=== PATIENT | male | born 1935 | race Caucasian/White ===

== ENCOUNTER 2016-05-19 12:02 | Outpatient (CLI) ==
--- NOTE | 2016-05-19 12:19 | DI ---
EXAM: PA and lateral views of the chest HISTORY: Bronchitis COMPARISON: None FINDINGS: The cardiomediastinal silhouette is normal. There is no pneumothorax or pleural effusion . There is no consolidation, nodule or mass. The osseous structures demonstrate degenerative disea se of the spine. There are surgical clips in right upper quadrant. IMPRESSION: No acute cardiopulmonary process
== END 2016-05-19 12:03 | disposition home or self-care (01) ==
LOC: RAD 12:02
PROVIDERS: ATTEND Internal Medicine
DX: J40 Bronchitis, not specified as acute or chronic (principal)

== ENCOUNTER 2017-08-29 08:01 | Outpatient (CLI) | payer OTHER ==
--- NOTE | 2017-08-29 10:19 | MRI ---
EXAM: MRI upper arm/right humerus without contrast. HISTORY: Right biceps deformity. Pain. Injured lifting. Skipwith pop. Upper humerus area. Bulge mid humerus.. TECHNIQUE: Using a coil on a high field strength magnet multiplanar multisequence large field of vie w imaging obtained through level of the right humerus without intravenous gadolinium contrast. Note this constitutes incomplete MR evaluation of the right shoulder as well as right elbow.. COMPARISON: MRI right shoulder 12/31/2009. FINDINGS: The right humeral head seated. Poorly characterized suspicion for full-thickness tear sup raspinatus. Free fluid subacromial/subdeltoid space. Right glenohumeral joint osteoarthrosis. Overa ll bone marrow signal intensity the visualized right humerus shows no acute fracture, stress fracture or discrete lytic or blastic lesion. The proximal extra-articular bicipital groove empty. Tendinosis with full-thickness tear/disruption proximal long head biceps tendon. Torn and retracted distal tendon end fibers approximate 10 cm prox imal to the entrance of the bicipital groove. Surrounding fluid signal intensity/edema dissects dista lly. Muscle strain with distal muscle belly retraction as well. Note the distal insertion of the bi ceps brachii tendon below the right elbow joint line not imaged/evaluated on the current exam. Proxim al short head biceps brachii intact otherwise.. Course of the medial neurovascular bundle within nor mal limit in appearance. No enlarged right axillary lymphadenopathy.. IMPRESSION: Tendinosis with full-thickness tear/disruption proximal long head biceps tendon as descr ibed. Surrounding fluid signal intensity/edema dissecting. Associated muscle strain. Poorly characterized suspicion for full-thickness tear supraspinatus portion of the rotator cuff. Fr ee fluid subacromial/subdeltoid space. Right glenohumeral joint osteoarthrosis.
== END 2017-08-29 08:02 | disposition home or self-care (01) ==
LOC: RAD 08:01
PROVIDERS: ATTEND Internal Medicine
DX: M21.921 Unspecified acquired deformity of right upper arm (principal); M79.621 Pain in right upper arm
CPT/HCPCS: 73218

== ENCOUNTER 2018-02-01 12:04 | Outpatient (CLI) | payer OTHER ==
--- NOTE | 2018-02-01 12:41 | DI ---
EXAM: Radiographs, right rib HISTORY: Initial presentation for right-sided chest trauma. COMPARISON: Chest radiograph 05/19/2016. TECHNIQUE: Four views. FINDINGS: No right rib fracture identified. Right lung is clear without pleural effusion or pneumot horax. Cholecystectomy clips are present. IMPRESSION: No right rib fracture.
--- NOTE | 2018-02-01 12:42 | DI ---
EXAM: Radiographs, thoracic spine HISTORY: Initial presentation for back pain following a fall. COMPARISON: Chest radiograph 05/19/2016. TECHNIQUE: Three views. FINDINGS: Curvature and alignment are normal. Vertebral body heights are maintained. Mild multilev el degenerative disc disease noted. Visualized lungs are clear. IMPRESSION: No acute abnormality of the thoracic spine.
--- NOTE | 2018-02-01 12:42 | DI ---
EXAM: Chest two view, frontal and lateral views. HISTORY: Initial presentation for chest pain following a fall. COMPARISON: 05/19/2016. FINDINGS: The heart size is normal. There is no pulmonary vascular congestion. The lungs are clear . No pleural effusion or pneumothorax is seen. No acute osseous abnormality identified. Cholecyste ctomy clips noted. Since the prior study, there has been no significant interval change. IMPRESSION: No acute cardiopulmonary process.
== END 2018-02-01 12:05 | disposition home or self-care (01) ==
LOC: RAD 12:04
PROVIDERS: ATTEND Internal Medicine
DX: R07.9 Chest pain, unspecified (principal); M54.9 Dorsalgia, unspecified; R07.81 Pleurodynia; W19.XXXA Unspecified fall, initial encounter

== ENCOUNTER 2018-04-27 08:50 | Outpatient (CLI) ==
--- NOTE | 2018-04-27 10:25 | US ---
EXAM: ULTRASOUND CAROTID DUPLEX, BILATERAL HISTORY: Dizziness FINDINGS: Ruelas-scale ultrasound, color Doppler and spectral analysis was performed. Velocities are in meters per second. By ruelas scale and color Doppler imaging, there were regions of heterogeneous plaque formation identi fied within the carotid bulbs and internal carotid arteries. These regions of plaque appeared to rem ain easily less than 50% vessel diameter. RIGHT: External carotid artery peak systolic velocity: 0.61 Common carotid artery peak systolic velocity/end diastolic velocity: 1.54/0.14 Internal carotid artery peak systolic velocity: 0.63 ICA/CCA peak systolic velocity ratio: 1.2 ICA end diastolic velocity: 2.4 LEFT: External carotid artery peak systolic velocity: 0.59 Common carotid artery peak systolic velocity/end diastolic velocity: 0.52/0.14 Internal carotid artery peak systolic velocity: 0.47 ICA/CCA peak systolic velocity ratio: 0.09 ICA end diastolic velocity: 1.1 The right vertebral artery was seen and was antegrade. The left vertebral artery was not seen. IMPRESSION: 1. By ruelas scale and color Doppler imaging, there were regions of heterogeneous plaque formation miller ntified within the carotid bulbs and internal carotid arteries. These regions of plaque appeared to remain easily less than 50% vessel diameter. 2. Internal carotid artery peak systolic velocities and ICA/CCA peak systolic velocity ratios indica te no hemodynamically significant stenosis bilaterally. 3. No left vertebral artery was seen. This may be secondary to technical difficulty, small caliber or occlusion. Right vertebral artery was normally antegrade. 4. Correlation with CTA neck can be considered if indicated.
--- NOTE | 2018-04-27 11:59 | MRI ---
EXAM: MRI brain without and with IV contrast. DATE: 04/27/2018. HISTORY: Dizziness. TECHNIQUE: Sagittal T1W pre and postcontrast, axial T2W, axial FLAIR, axial T1W pre and postcontrast , axial DWI, coronal T1W postcontrast, and coronal T2W GRE sequences of the brain were obtained using 1.2 Radha magnet. CONTRAST: Omniscan - 15 ml IV. COMPARISON: CT paranasal sinuses 11 October 2007. FINDINGS: The ventricles, cisterns, many cerebral sulc and a few cerebellar sulci are enlarged due t o involutional change. No midline shift, mass effect or abnormal extra-axial fluid collection is gabrielle arent. No acute infarct, hemorrhage or enhancing neoplasm is identified. No abnormal contrast enhan cement is identified in the brain, meninges or dura. Small areas of T2W/FLAIR hyperintensity are obs erved in the white matter abutting each lateral ventricles. Small number of 2-7 mm diameter, T2W/FLA IR bright, non-enhancing foci are scattered within the subcortical white matter bilaterally. The gra y - white matter differentiation is normal. No migration or diverticulation abnormality is identifie d. The amygdala, hippocampus, and parahippocampal gyri are similar bilaterally. The 7th/8th cranial nerve complexes, cerebellopontine angles, brainstem, and visible cervical spinal cord are normal. T here is no cerebellar tonsillar ectopia. The pituitary gland is somewhat small in size. Corpus call osum is normal in size and configuration. Flow voids are present in the major intracranial arteries and in the dural venous sinuses. No aneurysm, AVM or dural venous sinus thrombosis is apparent. Gabrielle earance of the lens of each eye suggests prior cataract surgery. No other orbit abnormality is ident ified. The mastoid air cells are unremarkable. There is minor mucosal thickening within multiple et hmoid air cells. No neck mass or lymphadenopathy is detected. No calvarial neoplasm or acute fractu re is evident. Cervical spinal canal appears mildly narrow at C2-3. IMPRESSIONS: 1. No acute infarct, hemorrhage, enhancing neoplasm or hydrocephalus. 2. Minor/mild cerebral leukomalacia - likely due to small vessel disease. 3. Mild cerebral and minor cerebellar atrophy. 4. Somewhat small pituitary gland. 5. C2-3 mild central canal stenosis. 6. Minor ethmoid sinus disease.
== END 2018-04-27 08:51 | disposition home or self-care (01) ==
LOC: RAD 08:50
PROVIDERS: ATTEND Internal Medicine
DX: R42 Dizziness and giddiness (principal)
CPT/HCPCS: 36415; 82565

== ENCOUNTER 2018-05-02 08:37 | Outpatient (CLI) | payer OTHER ==
--- NOTE | 2018-05-02 10:37 | DI ---
EXAM: CHEST FRONTAL AND LATERAL VIEWS HISTORY: Ataxia. COMPARISON: 02/01/2018 FINDINGS: Heart size and mediastinal contour remain within normal limits. No acute infiltrates. Normal vascularity with no pleural fluid or pneumothorax. The bony thorax has no acute finding. IMPRESSION: No acute process.
--- NOTE | 2018-05-02 12:00 | CT ---
EXAM: CTA neck HISTORY: Left vertebral artery not identified on ultrasound. Dizziness. TECHNIQUE: CTA neck with and without intravenous contrast. Multiplanar images provided. 3-D recons tructions. 125 ml Omnipaque. FINDINGS: No comparison CT. The origin of the great vessels have normal caliber. The common carotid arteries have normal caliber and patency. There is no hemodynamically significant stenosis at the carotid bulbs or within the in ternal/external carotid arteries at the cervical level. Both vertebral arteries are patent with the left artery significantly diminutive in caliber. The right vertebral artery is prominent in caliber. There is no evidence of hemodynamically significant stenosis at the origins of the vertebral arteri es although the left artery origin is poorly seen. Soft tissues of the neck proper are within normal limits including salivary glands and thyroid. Orop haryngeal structures are symmetric. Degenerative changes of the spine lead to multilevel central can al and neural foraminal stenosis. Patchy opacification within the paranasal sinuses. Mastoid proces ses are clear. Upper lung temple are free of infiltrate. IMPRESSION: 1. The left vertebral artery is patent although diminutive in caliber. The other arteries have norm al appearance. No evidence of hemodynamically significant carotid artery stenosis. 2. Degenerative changes of the cervical spine with multilevel central and neural foraminal stenosis. 3. Mild chronic paranasal sinusitis.
== END 2018-05-02 08:38 | disposition home or self-care (01) ==
LOC: RAD 08:37
PROVIDERS: ATTEND Internal Medicine
DX: R27.0 Ataxia, unspecified (principal)

== ENCOUNTER 2023-01-23 10:44 | Observation (INO) ==
[2023-01-23] MEDS ORDERED: TORADOL IVP STA (11:05)
[2023-01-23] MEDS ORDERED: TYLENOL PO STA (11:05)
[2023-01-23 11:20] LABS: BASOPHILS # (AUTO) 0.1 K/uL (0-0.2); BASOPHILS % (AUTO) 0.4 % (0.0-3.0); EOSINOPHILS # (AUTO) 0.3 K/ul (0.0-0.7); EOSINOPHILS % (AUTO) 2.2 % (0.0-7.0); HEMATOCRIT 35.3 % (42.0-52.0); HEMOGLOBIN 11.6 g/dl (14.0-18.0); IMMATURE GRANULOCYTE # (AUTO) 0.1 (0.0-1.0); IMMATURE GRANULOCYTE % (AUTO) 0.9 % (0.0-5.0); LYMPHOCYTES % (AUTO) 50.5 (10.0-50.0); MEAN CORPUSCULAR HEMOGLOBIN 28.3 pg (27.0-31.0); MEAN CORPUSCULAR HGB CONC 32.9 (31.8-35.4); MEAN CORPUSCULAR VOLUME 86.1 fl (80.0-94.0); MONOCYTES # (AUTO) 0.9 K/uL (0.4-2.0); MONOCYTES % (AUTO) 6.4 (0-10); NEUTROPHILS # (AUTO) 5.5 K/ul (2.0-6.9); NEUTROPHILS % (AUTO) 39.6 % (42.2-75.2); PLATELET COUNT 343 10^3/uL (140-440); RDW COEFFICIENT OF VARIATION 12.7 % (11.6-14.8); WHITE BLOOD COUNT 13.95 K/ul (4.2-10.2)
[2023-01-23 11:33] LABS: ALANINE AMINOTRANSFERASE 29.3 U/L (0-50); ALBUMIN 3.71 g/dL (3.5-5.0); ALKALINE PHOSPHATASE 62.4 U/L (56-119); ASPARTATE AMINO TRANSFERASE 31.2 U/L (17-59); BILIRUBIN,TOTAL 0.39 mg/dL (0.2-1.3); BLOOD UREA NITROGEN 12.6 mg/dL (9-20); CALCIUM 8.58 mg/dL (8.4-10.2); CARBON DIOXIDE 30.4 mmol/L (22-30.0); CREATININE 0.76 mg/dL (0.60-1.10); GLUCOSE 127.4 mg/dL (74-106); MAGNESIUM 1.97 mg/dL (1.6-2.3); POTASSIUM 4.13 mmol/L (3.5-5.1); SODIUM 127.6 mmol/L (134.5-145); TOTAL PROTEIN 6.46 g/dL (6.3-8.2)
[2023-01-23 11:37] LABS: SARS COV-2 RNA RAPID NAAT NEGATIVE (NEGATIVE)
[2023-01-23 11:38] LABS: MOLECULAR FLU A NEGATIVE BY NAAT (NEGATIVE); MOLECULAR FLU B NEGATIVE BY NAAT (NEGATIVE)
--- NOTE | 2023-01-23 11:40 | DI ---
EXAM: TWO VIEWS OF THE RIGHT HIP HISTORY: Right hip pain. COMPARISON: None FINDINGS: There is mild degenerative change and osteophyte formation of the right hip. Small osteoph ytes are present. Limited views of the pelvis are normal. The soft tissues are normal. IMPRESSION: Degenerative disease of the right hip with no displaced fracture identified.
[2023-01-23 11:43] LABS: ANISOCYTOSIS NOT PRESENT (NOT PRESENT); POLYCHROMASIA 1+ (NOT PRESENT)
[2023-01-23 11:45] LABS: TROPONIN I < 0.012 ng/ml (0.0000-0.120)
[2023-01-23 12:28] LABS: BILIRUBIN,URINE Negative (NEGATIVE); CLARITY,URINE Clear (CLEAR); COLOR,URINE Yellow (YELLOW); GLUCOSE, URINE (UA) Negative (NEGATIVE); KETONES,URINE Negative (NEGATIVE); LEUKOCYTE ESTERASE ,URINE Negative (NEGATIVE); NITRITE,URINE Negative (NEGATIVE); PH,URINE 7.5 (5-9); PROTEIN,URINE Negative (NEGATIVE); URINE, BLOOD Trace-intact (NEGATIVE); UROBILINOGEN,URINE 0.2 (0.2)
[2023-01-23 12:46] LABS: AMORPHOUS SEDIMENT,UR 2+ (NOT PRESENT); URINE RBC, MICROSCOPIC 0-2 (0-2)
--- NOTE | 2023-01-23 14:41 | ED.PDOC ---
General ED Provider: Dr. CHIDI AMOS Chief Complaint: Weakness Stated Complaint: See above Time Seen by Provider: 01/23/23 10:45 Information Source: Patient Primary Care Provider: KATHYA LAUGHLIN MD Nursing and Triage Documentation Reviewed and Agree: Yes (unless otherwise noted in my documentation.) Review of Systems Review Of Systems Constitutional: Reports Other (documented below) All Other Systems: Other (documented below) [facility] Medical History Ataxia Barretts esophagus BPH (benign prostatic hyperplasia) Chronic anemia CLL (chronic lymphocytic leukemia) Constipation Dysuria Erectile dysfunction GERD (gastroesophageal reflux disease) HTN (hypertension) Leukocytosis Lumbar radiculopathy Polio Social History (Updated 09/29/22 @ 13:52 by SAULO VELASQUEZ) Smoking and tobacco status: Never smoker Alcohol intake: never Substance use type: does not use Special lenore needs: No Agree to transfusion: Yes Adopted: No Caregiver/support person: No Foster care: No Household members: spouse Housing: house Marital status: M Lives independently: Yes Number of children: 1 service: No FDC: No Current occupational status: retired History of recent travel: No Do you think of yourself as: straight/heterosexual Current gender identity: male Seatbelt use: always Drives intoxicated or rides with intoxicated experienced truck driver: No Water heater temperature set < 120 degrees: Yes Working smoke detector in home: Yes Fire extinguisher in home: Yes Carbon monoxide detector in home: Yes Surgical History (Updated 06/22/22 @ 13:43 by FLAVIA MCCLENDON, RN) S/P laminectomy Z98.890 - Other specified postprocedural states (ICD-10) Physical Exam Physical Exam Appearance: Reports Other (documented below if examined) Ill-appearing: Not Applicable (documented below if examined) Pain Distress: Not Applicable (documented below if examined) Eyes: Reports Other (documented below if examined) ENT: Reports Other (documented below if examined) Neck: Not Examined (documented below if examined) Respiratory: Reports Other (documented below if examined) Cardiovascular: Reports Other (documented below if examined) GI/: Reports Other (documented below if examined) Musculoskeletal: Reports Other (documented below if examined) Skin: Reports Other (documented below if examined) Neurological: Reports Other (documented below if examined) Psychiatric: Reports Other (documented below if examined) Critical Care Note Critical Care Note Total Critical Care Time (mins): 0 Course Course 01/23/23 11:14 01/23/23 11:14 Orders, Labs, Meds: Lab Review 01/23/23 01/23/23 01/23/23 11:14 11:15 12:00 WBC 13.95 H RBC 4.10 L Hgb 11.6 L Hct 35.3 L MCV 86.1 MCH 28.3 MCHC 32.9 RDW Coeff of [place] 12.7 Plt Count 343 Immature Gran % (Auto) 0.9 Neut % (Auto) 39.6 L Lymph % (Auto) 50.5 H [place] % (Auto) 6.4 Eos % (Auto) 2.2 Baso % (Auto) 0.4 Neut # (Auto) 5.5 Lymph # (Auto) 7.0 H [place] # (Auto) 0.9 Eos # (Auto) 0.3 Baso # (Auto) 0.1 Immature Gran # (Auto) 0.1 Polychromasia 1+ Anisocytosis Not present Sodium 127.6 L Potassium 4.13 Chloride 93.0 L Carbon Dioxide 30.4 H Anion Gap 8.33 BUN 12.6 Creatinine 0.76 Estimated GFR (MDRD) 97.00 BUN/Creatinine Ratio 16.57 Glucose 127.4 H Calcium 8.58 Magnesium 1.97 Total Bilirubin 0.39 AST 31.2 ALT 29.3 Alkaline Phosphatase 62.4 Troponin I < 0.012 Total Protein 6.46 Albumin 3.71 Globulin 2.75 Albumin/Globulin Ratio 1.34 Urine Color Yellow Urine Clarity Clear Urine pH 7.5 Ur Specific [place] 1.020 Urine Protein Negative Urine Glucose (UA) Negative Urine Ketones Negative Urine Blood Trace-intact H Urine Nitrite Negative Urine Bilirubin Negative Urine Urobilinogen 0.2 Ur Leukocyte Esterase Negative Urine Microscopic RBC 0-2 Urine Microscopic WBC 5-10 Ur Squamous Epith Cells Not Reportable Amorphous Sediment 2+ Influ A Molecular Assay Negative by naat Influ B Molecular Assay Negative by naat SARS CoV-2 RNA Rapid ANN Negative Orders Category Date Time Status CBC W/ AUTO DIFF Stat LAB 01/23/23 11:14 Completed COMPREHENSIVE METABOLIC PANEL Stat LAB 01/23/23 11:14 Completed COVID [SARS COV-2 RNA RAPID ANN] Stat LAB 01/23/23 11:15 Completed FLU A & B MOLECULAR [FLU A/B MOLECULAR] Stat LAB 01/23/23 11:15 Completed MAGNESIUM Stat LAB 01/23/23 11:14 Completed RBC MORPHOLOGY Stat LAB 01/23/23 11:14 Completed TROPONIN I Stat LAB 01/23/23 11:14 Completed URINALYSIS C & S IF INDICATED Stat LAB 01/23/23 12:00 Completed URINE CULTURE Stat LAB 01/23/23 12:00 Received Acetaminophen [Tylenol] Meds 01/23/23 11:05 Discontinued 1,000 mg PO ONCE STA Ketorolac Tromethamine [Toradol] Meds 01/23/23 11:05 Discontinued 15 mg IVP ONCE STA HIP,RIGHT 2VWS W OR W/O PELVIS Stat RADS 01/23/23 11:05 Completed Medications Discontinued Medications Generic Name Dose Route Start Last Admin Trade Name Freq PRN Reason Stop Dose Admin Acetaminophen 1,000 mg 01/23/23 11:05 01/23/23 11:48 Acetaminophen 500 Mg Tablet PO 01/23/23 11:06 1,000 mg ONCE STA Administration Ketorolac Tromethamine 15 mg 01/23/23 11:05 01/23/23 11:48 Ketorolac Tromethamine 15 Mg/Ml Vial IVP 01/23/23 11:06 15 mg ONCE STA Administration Vital Signs: Temp Pulse Resp BP Pulse Ox 01/23/23 14:00 146/87 H 01/23/23 10:48 98.4 F 75 18 193/99 H 98 Discharge Plan Discharge Patient Disposition: PLACED OBSERVATION Discharge Problem: Acute pain of right hip, Debility, unspecified Prescriptions: No Action fenofibrate 160 mg tablet 160 mg PO DAILY Qty: 90 1RF nystatin 100,000 unit/gram powder 1 applic topical ONCE PRN (Reason: YEAST INFECTION) Qty: 60 2RF lorazepam 1 mg tablet 1 mg PO BID PRN (Reason: Anxiety) Qty: 60 3RF tamsulosin 0.4 mg capsule See Rx Instructions .ROUTE .COMPLEX Qty: 180 1RF Dose Instruction: TAKE 2 CAPSULES BY MOUTH DAILY Rx Instructions: TAKE 2 CAPSULES BY MOUTH DAILY duloxetine [Cymbalta] 60 mg capsule,delayed release(DR/EC) 60 mg PO DAILY Qty: 90 1RF ezetimibe [Zetia] 10 mg tablet 10 mg PO DAILY Qty: 90 1RF finasteride [Proscar] 5 mg tablet 5 mg PO DAILY Qty: 90 1RF gabapentin 300 mg capsule 300 mg PO BEDTIME Qty: 90 1RF losartan [Cozaar] 50 mg tablet 50 mg PO QDAY Qty: 90 1RF pantoprazole 40 mg tablet,delayed release (DR/EC) 40 mg PO BID Qty: 180 1RF polyethylene glycol 3350 [Miralax] 17 GM powder in packet 17 g PO DAILY biotin 10,000 MCG capsule 10,000 mcg PO BID fluticasone propionate 1 SPRAY spray,suspension 1 spray NS DAILY PRN (Reason: Nasal Congestion) Centrum Silver Men 1 EACH tablet 1 ea PO DAILY ICaps AREDS 1 EACH tablet,delayed release (DR/EC) 1 ea PO DAILY cetirizine [Zyrtec] 10 MG tablet 10 mg PO DAILY acetaminophen [Mapap Extra Strength] 500 MG tablet 1,000 mg PO BEDTIME Qty: 1 0RF hydrocodone-acetaminophen 7.5-325 mg tablet 1 tab PO BID PRN (Reason: Pain) Qty: 60 0RF lansoprazole 15 mg capsule,delayed release(DR/EC) 15 mg PO BID Qty: 180 1RF Did you review [place] RESIDENT PROGRAM SPECIALIST for ALL controlled substances?: Not Applicable ED Provider: CHIDI AMOS Physician Progress Note: Disclaimer: This note was dictated by speech recognition technology. Minor errors in cover stitch machine operator may be present. Please call and notify me immediately for clarification or corrections. 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 He has been able to transfer from bed to other locations with assistance. He is currently incapable of assisting in his own transfer. His bed mobility has decreased. He is suffering also from right hip pain with an ambiguous onset. There is no history of an injury. The problem list, allergies, current medications and pharmacy records were reviewed and updated. ROS is included above. PE: Vital signs reviewed as well as all nursing documentation. General: Awake, alert, no acute distress, not toxic appearing, appears weak Overall, the patient is atraumatic, has no deformities, has no focal deficits, has no inappropriate behavior. Respiratory: No distress Cardiac: no edema or JVD, RRR Musculoskeletal: Very mild right hip tenderness without any bony point tenderness MDM: All results and reports for tests that were done in the emergency department have been reviewed and considered in the planning and disposition process. DD: Viral syndrome, progressively worsening debility, sepsis, UTI, pneumonia, right hip fracture, arthritis, contusion, Plan: Right hip x-ray, basic work-up, IV crystalloids Interpretation of tests: The x-ray report was reviewed and it was unremarkable. The lab work was not remarkable for any change off the baseline. Further action: I discussed the results with the family who expressed very clearly that they will not be able to care for him at home provided his physical status. I discussed that with his primary care physician who agreed to admit the patient under the hospitalist service for observation until a safe disposition has been arranged. I talked with the hospitalist who agreed and accepted the admission.
[2023-01-23] MEDS ORDERED: TYLENOL PO PRN (15:09)
[2023-01-23] MEDS ORDERED: ZOFRAN 4 MG/2 ML IVP PRN (15:09)
--- NOTE | 2023-01-23 15:13 | PCM ---
Date of Service Date Seen by Provider: 01/23/23 Time Seen by Provider: 15:00 Admit Day/Time Admission Date: 01/23/23 Admission Time: 14:50 Reason for Admission Chief Complaint: DEBILITY, RIGHT HIP PAIN Hospital Provider Hospital Provider: Gaurang Trejo PA-C, [facility] Primary Care Physician Primary Care Physician: KATHYA VILLEDA MD History of Present Illness History of Present Illness: Patient is an 87 year old male from home with pmhx of polio with chronic right sided deficits, GERD, hyperlipidemia, hypertension, BPH and incontinence, CLL, chronic anemia, barretts esophagus, spinal stenosis and mobility issues who presented to the ER for RLE weakness. Patient states 2-3 weeks ago he was able to do exercises with his lower ext, including right side. He has weakness but still had some use of the RLE. However it has progressively worsened to the point his RLE is paralyzed, he is only able to wiggle his toes. His states that he used to be able to get his RLE under him enough while transferring to bear weight on that leg to help transfer from bed to wheelchair, but he hasn't been able to do anything lately. This has made it incredibly difficult for her at home, she's had to recruit family members to help transfer him. She's had to lower him to the ground a couple times because she couldn't support him. He's had a cough and some sob. Otherwise no other new findings. He has incontinence but this is chronic. RUE is weak but at his baseline. She is interested also in home health and some DME that would help with transferring at home. In ER right hip x ray unremarkable. Labs unremarkable, chronically low sodium noted. Case Discussed With Case Discussed With: Patient's case was discussed with the ER Physicians, Dr. Amos. [facility] Medical History Dysuria R30.0 - Dysuria (ICD-10) Polio A80.9 - Acute poliomyelitis, unspecified (ICD-10) Surgical History S/P laminectomy Z98.890 - Other specified postprocedural states (ICD-10) Social History Smoking and tobacco status: Never smoker Alcohol intake: never Substance use type: does not use Special lenore needs: No Agree to transfusion: Yes Adopted: No Caregiver/support person: No Foster care: No Household members: spouse Housing: house Marital status: M Lives independently: Yes Number of children: 1 service: No FDC: No Current occupational status: retired History of recent travel: No Do you think of yourself as: straight/heterosexual Current gender identity: male Seatbelt use: always Drives intoxicated or rides with intoxicated long haul truck driver: No Water heater temperature set < 120 degrees: Yes Working smoke detector in home: Yes Fire extinguisher in home: Yes Carbon monoxide detector in home: Yes Allergies Allergies Allergy/AdvReac Type Severity Reaction Status Date / Time amoxicillin Allergy Intermediate Dizziness Verified 09/29/22 13:46 Penicillins Allergy Intermediate Rash Verified 09/29/22 13:46 Sulfa (Sulfonamide Allergy Intermediate Rash Verified 09/29/22 13:46 Antibiotics) adhesive tape AdvReac Itching Verified 09/29/22 13:46 erythromycin base AdvReac Rash Verified 09/29/22 13:46 latex AdvReac Itching Verified 09/29/22 13:46 Tetracyclines AdvReac Rash Verified 09/29/22 13:46 Current Medications Home Medications biotin 10,000 mcg capsule 10,000 mcg PO BID 09/13/18 [History Confirmed 09/13/18 Last Taken Unknown] cetirizine 10 mg tablet (Zyrtec) 10 mg PO DAILY 09/13/18 [History Confirmed 09/13/18 Last Taken Unknown] fluticasone propionate 50 mcg/actuation nasal spray,suspension 1 spray NS DAILY PRN Nasal Congestion 09/13/18 [History Confirmed 09/13/18 Last Taken Unknown] rcbwkyqs-hy-zewyw 300 mcg-K 60 mcg-lycop 600 mcg-lutein 300 mcg tablet (Centrum Silver Men) 1 ea PO DAILY 09/13/18 [History Confirmed 09/13/18 Last Taken Unknown] polyethylene glycol 3350 17 gram oral powder packet (Miralax) 17 g PO DAILY 09/13/18 [History Confirmed 09/13/18 Last Taken Unknown] vit A 7,160 unit-C 113 mg-E 100 pgfd-emej-uyqyrn tablet,delayed rel. (ICaps AREDS) 1 ea PO DAILY 09/13/18 [History Confirmed 09/13/18 Last Taken Unknown] acetaminophen 500 mg tablet (Mapap Extra Strength) 1,000 mg (2 x 500 mg) PO BEDTIME #1 tab 09/28/18 [Rx Last Taken Unknown] hydrocodone 7.5 mg-acetaminophen 325 mg tablet 1 tab PO BID PRN Pain #60 tabs 06/23/22 [Rx Confirmed 06/24/22 Last Taken Unknown] lansoprazole 15 mg capsule,delayed release 15 mg PO BID #180 caps 06/23/22 [Rx Confirmed 06/24/22 Last Taken Unknown] fenofibrate 160 mg tablet 160 mg PO DAILY #90 tabs 07/01/22 [Rx Last Taken Unknown] nystatin 100,000 unit/gram topical powder 1 applic topical ONCE PRN YEAST INFECTION #60 grams 08/25/22 [Rx Last Taken Unknown] lorazepam 1 mg tablet 1 mg PO BID PRN Anxiety #60 tabs 01/05/23 [Rx Last Taken Unknown] tamsulosin 0.4 mg capsule See Rx Instructions .Route .COMPLEX #180 caps 01/05/23 [Rx Last Taken Unknown] duloxetine 60 mg capsule,delayed release (Cymbalta) 60 mg PO DAILY #90 caps 01/09/23 [Rx Last Taken Unknown] ezetimibe 10 mg tablet (Zetia) 10 mg PO DAILY #90 tabs 01/09/23 [Rx Last Taken Unknown] finasteride 5 mg tablet (Proscar) 5 mg PO DAILY #90 tabs 01/09/23 [Rx Last Taken Unknown] gabapentin 300 mg capsule 300 mg PO BEDTIME #90 caps 01/09/23 [Rx Last Taken Unknown] losartan 50 mg tablet (Cozaar) 50 mg PO QDAY #90 tabs 01/09/23 [Rx Last Taken Unknown] pantoprazole 40 mg tablet,delayed release 40 mg PO BID #180 tabs 01/09/23 [Rx Last Taken Unknown] Home Acetaminophen (Acetaminophen 325 Mg Tablet) 650 mg PO Q4H PRN PRN Reason: Mild Pain Enoxaparin Sodium (Enoxaparin Sodium 40 Mg/0.4 Ml Syr) 40 mg SUBCUT DAILY ANDREA Ondansetron HCl (Ondansetron Hcl/Pf 4 Mg/2 Ml Sdv) 4 mg IVP Q6H PRN PRN Reason: Nausea / Vomiting Discontinued Medications Acetaminophen (Acetaminophen 500 Mg Tablet) 1,000 mg PO ONCE STA Stop: 01/23/23 11:06 Last Admin: 01/23/23 11:48 Dose: 1,000 mg Ketorolac Tromethamine (Ketorolac Tromethamine 15 Mg/Ml Vial) 15 mg IVP ONCE STA Stop: 01/23/23 11:06 Last Admin: 01/23/23 11:48 Dose: 15 mg Review of Systems Constitutional: Reports Weakness; Denies Fever, Fatigue or Chills Head: Reports Normocephalic and Atraumatic Cardiovascular: Denies Chest pain, Chest Pressure or Edema Respiratory: Reports Cough and Shortness of air Gastrointestinal: Denies Nausea, Vomiting, Diarrhea, Abdominal pain or Melena Genitourinary: Reports Incontinent Bladder; Denies Dysuria, Hematuria or Frequency Dermatologic: Denies Rashes Neurological: Reports Weakness and Problems with walking; Denies Syncope Physical examination Most Recent Vital Signs: Most Recent Vital Signs Temperature 98.4 F 01/23/23 10:48 Temperature Source Oral 01/23/23 10:48 Pulse Rate 75 01/23/23 10:48 Respiratory Rate 18 01/23/23 10:48 Blood Pressure 146/87 H 01/23/23 14:00 O2 Sat by Pulse Oximetry 98 01/23/23 10:48 Height 5 ft 10 in 01/23/23 10:48 Weight 185 lb 13.595 oz 01/23/23 10:48 Appearance: Positive No Apparent Distress, Alert and Oriented x3 and Other (+chronically ill) Skin: Positive [place], Warm and Good Turgor; Negative Rashes HEENT: Positive Normocephalic and Atraumatic Neck: Positive Supple and Midline Trachea Chest/Lungs: Positive Clear to Auscultation Bilaterally; Negative Rales, Rhonci or Wheezes Heart: Positive RRR GI/: Positive Soft, Nontender, Bowel Sounds Normal and No Distention Neurological: Positive Alert, Oriented and Other (+Generalized weakness and debility. +Focal weakness of RUE but at baseline per patient. Right had contraction noted. +Focal weakness of RLE, worse than baseline. Unable to extend hip or knee, unable to lift off of cot, only able to wiggle toes. Pulses intact. ) Psychiatric: Positive Oriented x4, Appropriate Mood and Appropriate Affect Labs This Visit Labs This Visit: Labs This Visit 01/23/23 01/23/23 01/23/23 11:14 11:15 12:00 WBC 13.95 H RBC 4.10 L Hgb 11.6 L Hct 35.3 L MCV 86.1 MCH 28.3 MCHC 32.9 RDW Coeff of [place] 12.7 Plt Count 343 Immature Gran % (Auto) 0.9 Neut % (Auto) 39.6 L Lymph % (Auto) 50.5 H [place] % (Auto) 6.4 Eos % (Auto) 2.2 Baso % (Auto) 0.4 Neut # (Auto) 5.5 Lymph # (Auto) 7.0 H [place] # (Auto) 0.9 Eos # (Auto) 0.3 Baso # (Auto) 0.1 Immature Gran # (Auto) 0.1 Polychromasia 1+ Anisocytosis Not present Sodium 127.6 L Potassium 4.13 Chloride 93.0 L Carbon Dioxide 30.4 H Anion Gap 8.33 BUN 12.6 Creatinine 0.76 Estimated GFR (MDRD) 97.00 BUN/Creatinine Ratio 16.57 Glucose 127.4 H Calcium 8.58 Magnesium 1.97 Total Bilirubin 0.39 AST 31.2 ALT 29.3 Alkaline Phosphatase 62.4 Troponin I < 0.012 Total Protein 6.46 Albumin 3.71 Globulin 2.75 Albumin/Globulin Ratio 1.34 Urine Color Yellow Urine Clarity Clear Urine pH 7.5 Ur Specific [place] 1.020 Urine Protein Negative Urine Glucose (UA) Negative Urine Ketones Negative Urine Blood Trace-intact H Urine Nitrite Negative Urine Bilirubin Negative Urine Urobilinogen 0.2 Ur Leukocyte Esterase Negative Urine Microscopic RBC 0-2 Urine Microscopic WBC 5-10 Ur Squamous Epith Cells Not Reportable Amorphous Sediment 2+ Influ A Molecular Assay Negative by naat Influ B Molecular Assay Negative by naat SARS CoV-2 RNA Rapid ANN Negative Imaging Imaging: cc: CHIDI AMOS MD; KATHYA VILLEDA MD EXAM: TWO VIEWS OF THE RIGHT HIP HISTORY: Right hip pain. COMPARISON: None FINDINGS: There is mild degenerative change and osteophyte formation of the right hip. Small osteophytes are present. Limited views of the pelvis are normal. The soft tissues are normal. IMPRESSION: Degenerative disease of the right hip with no displaced fracture identified. Review Statement Review Statement: I have independently reviewed and interpreted the labs/EKGs/imaging that were ordered by the ER provider. I have reviewed all outside records that are available currently in our EMR including imaging/notes/labs from previous visits. Plan Plan: 1. Worsening right lower extremity weakness - Check ct head, pelvis and lumbar CT to r/o cva, pelvic fractures, significant spinal stenosis. PT/OT consult. CM consult for home health, DME needed at home. 2. Cough - CXR ordered. 3. History of polio - Pt has chronic right sided weakness, but it has progressively worsened in last 2-3 weeks. Plan as above. 4. Hypertension - Continue home meds 5. Hyperlipidemia - Continue home meds 6. GERD - Continue home meds 7. CLL - Monitor cbc. 8. BPH - Continue home meds DVT Prophylaxis: Lovenox Time Spent: Greater than 80 minutes spent with patient, 50% of the time spent with this patient was devoted to counseling and coordination of care. [facility] minutes spent discussing advance care planning. Admit to: Obs Discussed Plan of Care with Dr. Thuan Villeda.
--- NOTE | 2023-01-23 15:48 | CT ---
EXAMINATION: HEAD CT WITHOUT CONTRAST HISTORY: Right lower extremity weakness. TECHNIQUE: Noncontrast CT of the brain was performed with images acquired from skull base to vertex. 2-D coronal and sagittal reformatted images were obtained from the axial source images. Contrast Dose: None. CT Dose Reduction Techniques Performed: Yes. COMPARISON: MRI of the brain dated 04/27/2018. FINDINGS: Topogram demonstrates no significant abnormality. Intraparenchymal hemorrhage: None. Parenchyma: Normal egan-white differentiation. No mass effect or midline shift. Chronic: Mild decreased attenuation of the periventricular white matter consistent with microangiopat hic ischemic change. Vascular calcifications consistent with arthrosclerosis. Extra-axial spaces and basal cisterns: Normal. Ventricles: Mild enlargement of the ventricles and subarachnoid spaces consistent with atrophy. Paranasal sinuses and mastoid air cells: Visualized portions of paranasal sinuses are clear. Mastoid air cells are clear. Orbits: Normal visualized portions. Sella/Skull Base: Normal. Other: Scalp and visualized soft tissues are normal. Calvarium is normal. IMPRESSION: 1. Mild atrophy. 2. Mild microangiopathic ischemic change. 3. Atherosclerosis. 4. No intracranial hemorrhage. 5. Otherwise unremarkable noncontrast CT scan of the brain. All CT scans are performed using dose optimization techniques as appropriate to the performed exam an d include at least one of the following: Automated exposure control, adjustment of the mA and/or kV according t o size, and the use of iterative reconstruction technique.
--- NOTE | 2023-01-23 15:48 | DI ---
EXAM: CHEST RADIOGRAPH TECHNIQUE: Single frontal chest radiograph. COMPARISON: 05/02/2018 HISTORY: Cough FINDINGS: The heart and mediastinum are normal. A small right pleural effusion is identified, with adjacent ate lectasis. No pneumothorax. No acute abnormality of the bones or soft tissues is identified. IMPRESSION: A small right pleural effusion is noted. Otherwise, stable exam.
--- NOTE | 2023-01-23 15:54 | CT ---
EXAMINATION: CT LUMBAR SPINE WITHOUT CONTRAST HISTORY: Right lower extremity weakness. TECHNIQUE: Computed tomography (CT) of the lumbar spine was performed according to standard protocol without intravenous contrast. Contrast Dose: None. CT Dose Reduction Techniques Performed: Yes. COMPARISON: None. FINDINGS: Numbering/Segmentation: Last fully formed disk space is designated L5-S1. Alignment: Normal. Post-Surgical Changes/Hardware: None. Bones: No acute fracture. No chronic compression deformity. A mild compression deformity of L5 is not ed, likely chronic. Moderate multilevel degenerative changes are identified. Disk Spaces: Moderate disc height loss is noted at L2/L3. Soft Tissues: Normal. Limited Abdomen: The trace right pleural effusion is noted. Level By Level Degenerative Changes: L1-L2: Mild posterior disc bulge. No central or foraminal stenosis. L2-L3: Prominent posterior calcified disc osteophyte complex formation. Mild central canal narrowing is identified. No significant neural foraminal stenosis. L3-L4: Mild posterior disc bulge. No central or foraminal stenosis. L4-L5: Mild posterior disc bulge. No central or foraminal stenosis. L5-S1: Mild posterior disc bulge. Mild bilateral neural foraminal narrowing. No significant central canal stenosis. Limited Sacrum/Pelvis: Within normal limits. IMPRESSION: 1. No acute fracture or subluxation. 2. A chronic fracture deformity of L5 is suspected, with approximately 25% height loss. 3. Mild to moderate multilevel spondylosis of the lumbar spine. All CT scans are performed using dose optimization techniques as appropriate to the performed exam an d include at least one of the following: Automated exposure control, adjustment of the mA and/or kV according t o size, and the use of iterative reconstruction technique.
--- NOTE | 2023-01-23 16:13 | CT ---
EXAM: CT PELVIS WITHOUT CONTRAST. HISTORY: Pelvic pain. TECHNIQUE: CT scan of the pelvis without intravenous contrast was performed with standard protocol. Coronal and sagittal reformatted images were obtained from the axial source images. Images were re viewed on a high-resolution PACS workstation. One or more of the following dose reduction technique s were used: Automated exposure control, adjustment of the mA and/or kV according to patient size, us e of iterative reconstruction technique. DICOM images are available. COMPARISON: None. FINDINGS: No acute fracture or dislocation identified. Mild bilateral osteoarthritis of the hips. T he SI joints appear grossly intact. Pubic rami are intact. No osseous lesions are appreciated. Rig ht-sided unilateral muscular atrophy is noted severely. This is chronic. No bowel obstruction. No collections or hematomas detected. IMPRESSION: 1. No acute findings. No fracture or dislocation. Diffuse chronic right-sided muscular júnior - atrop hy. All CT scans are performed using dose optimization techniques as appropriate to the performed exam an d include at least one of the following: Automated exposure control, adjustment of the mA and/or kV according t o size, and the use of iterative reconstruction technique.
[2023-01-23 16:38] VITALS: BMI 26.1
[2023-01-23] MEDS ORDERED: NYSTOP POWDER TP PRN (18:11)
[2023-01-23] MEDS ORDERED: ATIVAN PO PRN (19:48)
[2023-01-23] MEDS: FLOMAX PO SCH (20:44)
[2023-01-23] MEDS: COZAAR PO SCH (20:44)
[2023-01-23] MEDS: PROTONIX PO SCH (20:44)
[2023-01-23] MEDS ORDERED: NEURONTIN PO SCH (21:00)
[2023-01-24 05:18] VITALS: RESP 18
[2023-01-24 05:33] LABS: HEMATOCRIT 35.2 % (42.0-52.0); HEMOGLOBIN 11.6 g/dl (14.0-18.0); MEAN CORPUSCULAR HEMOGLOBIN 28.6 pg (27.0-31.0); MEAN CORPUSCULAR VOLUME 86.7 fl (80.0-94.0); PLATELET COUNT 351 10^3/uL (140-440); RDW COEFFICIENT OF VARIATION 12.9 % (11.6-14.8); RED BLOOD COUNT 4.06 10^6/ul (4.70-6.10); WHITE BLOOD COUNT 14.09 K/ul (4.2-10.2)
[2023-01-24 05:44] LABS: ALANINE AMINOTRANSFERASE 29.8 U/L (0-50); ALBUMIN 3.64 g/dL (3.5-5.0); ALKALINE PHOSPHATASE 59.5 U/L (56-119); BILIRUBIN,TOTAL 0.42 mg/dL (0.2-1.3); BLOOD UREA NITROGEN 16.8 mg/dL (9-20); CALCIUM 8.72 mg/dL (8.4-10.2); CHLORIDE 94.3 mmol/L (98-107); CREATININE 0.75 mg/dL (0.60-1.10); GLUCOSE 101.8 mg/dL (74-106); POTASSIUM 3.97 mmol/L (3.5-5.1); SODIUM 127.8 mmol/L (134.5-145); TOTAL PROTEIN 6.45 g/dL (6.3-8.2)
[2023-01-24 06:13] LABS: ANISOCYTOSIS NOT PRESENT (NOT PRESENT)
[2023-01-24] MEDS ORDERED: PROSCAR PO SCH (09:00)
[2023-01-24] MEDS ORDERED: CYMBALTA PO SCH (09:00)
[2023-01-24] MEDS ORDERED: LOVENOX SUBCUT SCH (09:00)
[2023-01-24] MEDS ORDERED: MIRALAX PO SCH (09:00)
[2023-01-24] MEDS ORDERED: TRIGLIDE PO SCH (09:00)
[2023-01-24] MEDS ORDERED: ZETIA PO SCH (09:00)
[2023-01-24] MEDS: COZAAR PO SCH (09:37)
[2023-01-24] MEDS: FLOMAX PO SCH (09:38)
[2023-01-24] MEDS: PROTONIX PO SCH (09:38)
[2023-01-24 10:17] VITALS: BP 151/78; PULSE 73; TEMP 97.8
--- NOTE | 2023-01-24 10:45 | DCSUM ---
Admission Date Admission Date: 01/23/23 Discharge Date Discharge Date: 01/24/23 Admission Diagnosis Admission Diagnosis: 1. Worsening right lower extremity weakness Discharge Diagnosis Discharge Diagnosis: 1. Declining function/mobility 2. History of polio 3. Hypertension - Continue home meds 4. Hyperlipidemia - Continue home meds 5. GERD - Continue home meds 6. CLL - Monitor cbc. 7. BPH - Continue home meds 8. Chronic hyponatremia - At baseline Hospital Provider Hospital Provider[facility] Primary Care Physician Primary Care Physician: KATHYA LAUGHLIN MD Summary of History and Physical Summary of History and Physical: Patient is an 87 year old male from home with pmhx of polio with chronic right sided deficits, GERD, hyperlipidemia, hypertension, BPH and incontinence, CLL, chronic anemia, barretts esophagus, spinal stenosis and mobility issues who presented to the ER for RLE weakness. Patient states 2-3 weeks ago he was able to do exercises with his lower ext, including right side. He has weakness but still had some use of the RLE. However it has progressively worsened to the po int his RLE is paralyzed, he is only able to wiggle his toes. His states that he used to be able to get his RLE under him enough while transferring to bear weight on that leg to help transfer from bed to wheelchair, but he hasn't been able to do anything lately. This has made it incredibly difficult for her at home, she's had to recruit family members to help transfer him. She's had to lower him to the ground a couple times because she couldn't support him. He's had a cough and some sob. Otherwise no other new findings. He has incontinence but this is chronic. RUDiana is weak but at his baseline. She is interested also in home health and some DME that would help with transferring at home. In ER right hip x ray unremarkable. Labs unremarkable, chronically low sodium noted. Hospital Course Subjective: Patient had ct head, pelvis, and lumbar spine without any acute findings. No saddle anesthesia or significant back pain. Labs and vitals baseline. Home health was set up for patient. Hospital bed and lift ordered. Patient and decline penitentiary placement at this time. Pt was able to work with therapy some. Patient would benefit from lift and hospital bed. He is unable to turn himself to prevent pressure sores. He is unable to transfer by himself. He has very limited mobility, which is declining, due to his history of polio. Discussed with patients PCP Dr. Marcelo Laughlin as well. Appearance: Pleasant, No Apparent Distress and Alert HEENT: MMM CVS: No Murmur Abdomen: Soft, Non-Tender and No Distention Respiratory: No Dyspnea Extremities: No Edema Additional Findings: +paralysis of right lower ext. Pulses intact. Able to wiggle toes. Vital Signs: Most Recent Vital Signs Temperature 97.8 F 01/24/23 10:14 Temperature Source Oral 01/24/23 10:14 Temperature Source Oral 01/23/23 10:48 Pulse Rate 73 01/24/23 10:14 Respiratory Rate 18 01/24/23 10:14 Blood Pressure 151/78 H 01/24/23 10:14 Blood Pressure Mean 102 01/24/23 10:14 Blood Pressure Left Arm 178/83 01/23/23 16:10 Blood Pressure Location Left Arm 01/24/23 10:14 Blood Pressure Position Sitting 01/24/23 10:14 O2 Sat by Pulse Oximetry 95 01/24/23 10:14 Oxygen Delivery Method Room Air 01/24/23 10:14 Oxygen Flow Rate 0 01/23/23 16:10 Height 5 ft 10 in 01/24/23 08:38 Weight 182 lb 01/24/23 08:38 Imaging: EXAM: CHEST RADIOGRAPH TECHNIQUE: Single frontal chest radiograph. COMPARISON: 05/02/2018 HISTORY: Cough FINDINGS: The heart and mediastinum are normal. A small right pleural effusion is identified, with adjacent atelectasis. No pneumothorax. No acute abnormality of the bones or soft tissues is identified. IMPRESSION: A small right pleural effusion is noted. Otherwise, stable exam. EXAMINATION: HEAD CT WITHOUT CONTRAST HISTORY: Right lower extremity weakness. TECHNIQUE: Noncontrast CT of the brain was performed with images acquired from skull base to vertex. 2-D coronal and sagittal reformatted images were obtained from the axial source images. Contrast Dose: None. CT Dose Reduction Techniques Performed: Yes. COMPARISON: MRI of the brain dated 04/27/2018. FINDINGS: Topogram demonstrates no significant abnormality. Intraparenchymal hemorrhage: None. Parenchyma: Normal egan-white differentiation. No mass effect or midline shift. Chronic: Mild decreased attenuation of the periventricular white matter consistent with microangiopathic ischemic change. Vascular calcifications consistent with arthrosclerosis. Extra-axial spaces and basal cisterns: Normal. Ventricles: Mild enlargement of the ventricles and subarachnoid spaces con sistent with atrophy. Paranasal sinuses and mastoid air cells: Visualized portions of paranasal sinuses are clear. Mastoid air cells are clear. Orbits: Normal visualized portions. Sella/Skull Base: Normal. Other: Scalp and visualized soft tissues are normal. Calvarium is normal. IMPRESSION: 1. Mild atrophy. 2. Mild microangiopathic ischemic change. 3. Atherosclerosis. 4. No intracranial hemorrhage. 5. Otherwise unremarkable noncontrast CT scan of the brain. EXAMINATION: CT LUMBAR SPINE WITHOUT CONTRAST HISTORY: Right lower extremity weakness. TECHNIQUE: Computed tomography (CT) of the lumbar spine was performed according to standard protocol without intravenous contrast. Contrast Dose: None. CT Dose Reduction Techniques Performed: Yes. COMPARISON: None. FINDINGS: Numbering/Segmentation: Last fully formed disk space is designated L5-S1. Alignment: Normal. Post-Surgical Changes/Hardware: None. Bones: No acute fracture. No chronic compression deformity. A mild compression deformity of L5 is noted, likely chronic. Moderate multilevel degenerative changes are identified. Disk Spaces: Moderate disc height loss is noted at L2/L3. Soft Tissues: Normal. Limited Abdomen: The trace right pleural effusion is noted. Level By Level Degenerative Changes: L1-L2: Mild posterior disc bulge. No central or foraminal stenosis. L2-L3: Prominent posterior calcified disc osteophyte complex formation. Mild central canal narrowing is identified. No significant neural foraminal stenosis. L3-L4: Mild posterior disc bulge. No central or foraminal stenosis. L4-L5: Mild posterior disc bulge. No central or foraminal stenosis. L5-S1: Mild posterior disc bulge. Mild bilateral neural foraminal narrowing. No significant central canal stenosis. Limited Sacrum/Pelvis: Within normal limits. IMPRESSION: 1. No acute fracture or subluxation. 2. A chronic fracture deformity of L5 is suspected, with approximately 25% height loss. 3. Mild to moderate multilevel spondylosis of the lumbar spine. EXAM: CT PELVIS WITHOUT CONTRAST. HISTORY: Pelvic pain. TECHNIQUE: CT scan of the pelvis without intravenous contrast was performed with standard protocol. Coronal and sagittal reformatted images were obtained from the axial source images. Images were reviewed on a high-resolution PACS workstation. One or more of the following dose reduction techniques were used: Automated exposure control, adjustment of the mA and/or kV according to patient size, use of iterative reconstruction technique. DICOM images are available. COMPARISON: None. FINDINGS: No acute fracture or dislocation identified. Mild bilateral osteoarthritis of the hips. The SI joints appear grossly intact. Pubic rami are intact. No osseous lesions are appreciated. Right-sided unilateral muscular atrophy is noted severely. This is chronic. No bowel obstruction. No collections or hematomas detected. IMPRESSION: 1. No acute findings. No fracture or dislocation. Diffuse chronic right-sided muscular júnior - atrophy. Lab Results Last 24 Hours: 01/24/23 01/23/23 01/23/23 05:26 12:00 11:15 WBC 14.09 H RBC 4.06 L Hgb 11.6 L Hct 35.2 L MCV 86.7 MCH 28.6 MCHC 33.0 RDW Coeff of [place] 12.9 Plt Count 351 Immature Gran % (Auto) Neut % (Auto) Lymph % (Auto) [place] % (Auto) Eos % (Auto) Baso % (Auto) Neut # (Auto) Lymph # (Auto) [place] # (Auto) Eos # (Auto) Baso # (Auto) Immature Gran # (Auto) Neutrophils % (Manual) 34.0 L Lymphocytes % (Manual) 44.0 Monocytes % (Manual) 5.0 Eosinophils % (Manual) 4.0 Reactive Lymphocytes 13.0 H Polychromasia Anisocytosis Not present Sodium 127.8 L Potassium 3.97 Chloride 94.3 L Carbon Dioxide 28.0 Anion Gap 9.47 BUN 16.8 Creatinine 0.75 Estimated GFR (MDRD) 99.00 BUN/Creatinine Ratio 22.40 Glucose 101.8 Calcium 8.72 Magnesium Total Bilirubin 0.42 AST 41.0 ALT 29.8 Alkaline Phosphatase 59.5 Troponin I Total Protein 6.45 Albumin 3.64 Globulin 2.81 Albumin/Globulin Ratio 1.29 Urine Color Yellow Urine Clarity Clear Urine pH 7.5 Ur Specific [place] 1.020 Urine Protein Negative Urine Glucose (UA) Negative Urine Ketones Negative Urine Blood Trace-intact H Urine Nitrite Negative Urine Bilirubin Negative Urine Urobilinogen 0.2 Ur Leukocyte Esterase Negative Urine Microscopic RBC 0-2 Urine Microscopic WBC 5-10 Ur Squamous Epith Cells Not Reportable Amorphous Sediment 2+ Influ A Molecular Assay Negative by naat Influ B Molecular Assay Negative by naat SARS CoV-2 RNA Rapid ANN Negative 01/23/23 11:14 WBC 13.95 H RBC 4.10 L Hgb 11.6 L Hct 35.3 L MCV 86.1 MCH 28.3 MCHC 32.9 RDW Coeff of [place] 12.7 Plt Count 343 Immature Gran % (Auto) 0.9 Neut % (Auto) 39.6 L Lymph % (Auto) 50.5 H [place] % (Auto) 6.4 Eos % (Auto) 2.2 Baso % (Auto) 0.4 Neut # (Auto) 5.5 Lymph # (Auto) 7.0 H [place] # (Auto) 0.9 Eos # (Auto) 0.3 Baso # (Auto) 0.1 Immature Gran # (Auto) 0.1 Neutrophils % (Manual) Lymphocytes % (Manual) Monocytes % (Manual) Eosinophils % (Manual) Reactive Lymphocytes Polychromasia 1+ Anisocytosis Not present Sodium 127.6 L Potassium 4.13 Chloride 93.0 L Carbon Dioxide 30.4 H Anion Gap 8.33 BUN 12.6 Creatinine 0.76 Estimated GFR (MDRD) 97.00 BUN/Creatinine Ratio 16.57 Glucose 127.4 H Calcium 8.58 Magnesium 1.97 Total Bilirubin 0.39 AST 31.2 ALT 29.3 Alkaline Phosphatase 62.4 Troponin I < 0.012 Total Protein 6.46 Albumin 3.71 Globulin 2.75 Albumin/Globulin Ratio 1.34 Urine Color Urine Clarity Urine pH Ur Specific [place] Urine Protein Urine Glucose (UA) Urine Ketones Urine Blood Urine Nitrite Urine Bilirubin Urine Urobilinogen Ur Leukocyte Esterase Urine Microscopic RBC Urine Microscopic WBC Ur Squamous Epith Cells Amorphous Sediment Influ A Molecular Assay Influ B Molecular Assay SARS CoV-2 RNA Rapid ANN Discharge Instructions Discharge Planning: Discharge Planning > [address] Thuan Laughlin. Discharge Medications: Medications at Discharge (Home Meds & RX) biotin 10,000 mcg capsule 10,000 mcg PO BID 09/13/18 cetirizine 10 mg tablet (Zyrtec) 10 mg PO DAILY 09/13/18 fluticasone propionate 50 mcg/actuation nasal spray,suspension 1 spray NS DAILY PRN Nasal Congestion 09/13/18 [id number] 300 mcg-K 60 mcg-lycop 600 mcg-lutein 300 mcg tablet (Centrum Silver Men) 1 ea PO DAILY 09/13/18 polyethylene glycol 3350 17 gram oral powder packet (Miralax) 17 g PO DAILY 09/13/18 vit A 7,160 unit-C 113 mg-E 100 dcvn-bnpj-pjygrj tablet,delayed rel. (ICaps AREDS) 1 ea PO BID 09/13/18 lorazepam 1 mg tablet 1 mg PO BID PRN Anxiety #60 tabs 01/05/23 tamsulosin 0.4 mg capsule See Rx Instructions .Route .COMPLEX #180 caps 01/05/23 duloxetine 60 mg capsule,delayed release (Cymbalta) 60 mg PO DAILY #90 caps 01/09/23 ezetimibe 10 mg tablet (Zetia) 10 mg PO DAILY #90 tabs 01/09/23 finasteride 5 mg tablet (Proscar) 5 mg PO DAILY #90 tabs 01/09/23 gabapentin 300 mg capsule 300 mg PO BEDTIME #90 caps 01/09/23 losartan 50 mg tablet (Cozaar) 50 mg PO QDAY #90 tabs 01/09/23 pantoprazole 40 mg tablet,delayed release 40 mg PO BID #180 tabs 01/09/23 fenofibrate nanocrystallized 145 mg tablet (Tricor) 145 mg PO DAILY 01/23/23 Discharge Plan Discharge Discharge Orders: Discharge Patient (ONCE); Ordered 01/24/23 Ordered By: GAURANG TREJO Activity Restrictions/Additional Instructions: DISCHARGE TO HOME DX: WEAKNESS RLE ACTIVITY: TOLERATED, FALL PRECAUTIONS, PT/OT DIET: HEART HEALTHY F/U WITH PCP WITHIN 1 WEEK HOME HEALTH ORDERED YOU HAVE A HOSPITAL FOLLOW UP WITH DR. LAUGHLIN ON MondayJanuary AT 10:40AM. SHOULD YOU HAVE ANY QUESTIONS OR NEED TO RESCHEDULE YOU CAN CONTACT THEIR OFFICE AT [phone] YOU HAVE BEEN REFERRED TO [facility] FOR USP, PHYSICAL, AND OCCUPATIONAL THERAPIES. THEY WILL BE IN CONTACT WITH YOU TO INITIATE SERVICES. SHOULD YOU NEED TO CONTACT THEM, THEIR PHONE NUMBER IS [phone]. [facility] IN [place] WAS ABLE TO PROVIDE YOUR NEEDED MEDICAL EQUIPMENT. THEY WILL BE IN CONTACT WITH YOU TO DELIVER A HOSPITAL BED AND ASHLEY LIFT TO YOUR HOME. SHOULD YOU NEED TO CONTACT THEM, THEIR NUMBER IS [phone]. Patient Disposition: HOME SELF-CARE Prescriptions: Continued lorazepam 1 mg tablet 1 mg PO BID PRN (Reason: Anxiety) Qty: 60 3RF tamsulosin 0.4 mg capsule See Rx Instructions .ROUTE .COMPLEX Qty: 180 1RF Dose Instruction: TAKE 2 CAPSULES BY MOUTH DAILY Rx Instructions: TAKE 2 CAPSULES BY MOUTH DAILY duloxetine [Cymbalta] 60 mg capsule,delayed release(DR/EC) 60 mg PO DAILY Qty: 90 1RF ezetimibe [Zetia] 10 mg tablet 10 mg PO DAILY Qty: 90 1RF finasteride [Proscar] 5 mg tablet 5 mg PO DAILY Qty: 90 1RF gabapentin 300 mg capsule 300 mg PO BEDTIME Qty: 90 1RF losartan [Cozaar] 50 mg tablet 50 mg PO QDAY Qty: 90 1RF pantoprazole 40 mg tablet,delayed release (DR/EC) 40 mg PO BID Qty: 180 1RF polyethylene glycol 3350 [Miralax] 17 GM powder in packet 17 g PO DAILY biotin 10,000 MCG capsule 10,000 mcg PO BID fluticasone propionate 1 SPRAY spray,suspension 1 spray NS DAILY PRN (Reason: Nasal Congestion) Centrum Silver Men 1 EACH tablet 1 ea PO DAILY ICaps AREDS 1 EACH tablet,delayed release (DR/EC) 1 ea PO BID cetirizine [Zyrtec] 10 MG tablet 10 mg PO DAILY fenofibrate nanocrystallized [Tricor] 145 mg tablet 145 mg PO DAILY Did you review [place] IT COORDINATOR for ALL controlled substances?: Not Applicable Discussed opioids are addictive and Narcan is available by prescription or from pharmacy.: No Condition: Stable
[2023-01-24] MEDS ORDERED: FLUZONE HIGH-DOSE QUAD 2023-24 IM ONE (12:57)
== END 2023-01-24 14:45 | disposition home or self-care (01) ==
LOC: MEDSURG B 10:44 → ED 10:44 → MEDSURG B 16:01
PROVIDERS: ADMIT Hospitalist; ATTEND Physician Assistant
DX: I25.10 Atherosclerotic heart disease of native coronary artery without angina pectoris; E78.5 Hyperlipidemia, unspecified; I10 Essential (primary) hypertension; K21.9 Gastro-esophageal reflux disease without esophagitis; M62.81 Muscle weakness (generalized); M16.11 Unilateral primary osteoarthritis, right hip; N39.498 Other specified urinary incontinence; N40.1 Benign prostatic hyperplasia with lower urinary tract symptoms; Z20.822 Contact with and (suspected) exposure to COVID-19; R26.89 Other abnormalities of gait and mobility; M25.551 Pain in right hip; Z86.12 Personal history of poliomyelitis; Z23 Encounter for immunization; R53.81 Other malaise; M47.896 Other spondylosis, lumbar region; E87.1 Hypo-osmolality and hyponatremia; C91.11 Chronic lymphocytic leukemia of B-cell type in remission; R05.9 Cough, unspecified; D64.9 Anemia, unspecified; G83.11 Monoplegia of lower limb affecting right dominant side; K22.719 Barrett's esophagus with dysplasia, unspecified